=== PATIENT | male | born 1935 | race Caucasian/White ===

== ENCOUNTER 2016-12-04 14:39 | Emergency (ER) | payer MEDICARE, OTHER ==
[2016-12-04 14:02] LABS: BASOPHILS 0.4 %; BASOPHILS ABSOLUTE 0.03 10/3/uL (0.0-0.16); EOSINOPHILS 0.7 %; EOSINOPHILS ABSOLUTE 0.05 10/3/uL (0.0-0.53); ER CBC TAT 0 Hrs 08 Mins; HEMATOCRIT 49.4 % (40.0-51.0); IMMATURE GRANULOCYTES 0.3 %; IMMATURE GRANULOCYTES ABSOLUTE 0.02 10/3/uL (0.0-0.11); LYMPHOCYTES 13.2 %; LYMPHOCYTES ABSOLUTE 0.94 10/3/uL (0.67-4.30); MEAN CORPUS HGB CONC 34.4 g/dL (32.0-36.0); MEAN CORPUSCULAR HEMOGLOB 31.8 pg (26.0-34.0); MEAN CORPUSCULAR VOLUME 92.5 fL (80-100); MEAN PLATELET VOLUME 11.8 fL (9.2-13.0); MONOCYTES 10.2 %; MONOCYTES ABSOLUTE 0.73 10/3/uL (0.21-1.20); NEUTROPHILS 75.2 %; NEUTROPHILS ABSOLUTE 5.36 10/3/uL (2.02-8.40); PLATELET COUNT 207 10/3/uL (150-400); RBC DISTRIBUTION WIDTH 13.2 % (12.0-16.0); RED CELL COUNT 5.34 10/6/uL (4.7-6.1); WHITE BLOOD CELLS 7.1 10/3/uL (4.5-10.5)
[2016-12-04 14:04] LABS: MANUAL DIFF NO %
[2016-12-04 14:21] LABS: LACTATE 0.8 MMOL/L (0.3-2.4)
[2016-12-04 14:22] LABS: INFLUENZA A SCREEN NEGATIVE (NEGATIVE); INFLUENZA B SCREEN NEGATIVE (NEGATIVE)
[2016-12-04 14:23] LABS: A/G RATIO 0.7 (0.7-1.9); ALBUMIN 3.5 G/DL (3.5-5.0); ALKALINE PHOSPHATASE 115 U/L (45-117); CALCIUM, SERUM 9.4 MG/DL (8.5-10.4); CHLORIDE, SERUM 101 MMOL/L (96-112); CO2 (CARBON DIOXIDE) 28 MMOL/L (24-34); CREATININE 1.51 MG/DL (0.70-1.30); GFR AFRICAN AMERICAN 50 ML/MIN (>=60); GFR NON AFRICAN AMERICAN 43 ML/MIN (>=60); GLUCOSE, SERUM 69 MG/DL (60-99); POTASSIUM, SERUM 4.3 MMOL/L (3.5-5.3); SGOT(AST) 22 U/L (5-40); SGPT(ALT) 27 U/L (5-65); SODIUM, SERUM 138 MMOL/L (135-148); TOTAL BILIRUBIN 0.5 MG/DL (0-1.2); TROPONIN I <0.02 NG/ML (<0.05)
[2016-12-04 14:26] LABS: BUN (BLOOD UREA NITROGEN) 17 MG/DL (6-23); GLOBULIN 4.8 G/DL (2.5-4.1); TOTAL PROTEIN 8.3 G/DL (6.0-8.5)
[2017-03-19] MEDS ORDERED: FLOMAX4 PO (16:11)
[2017-03-19] MEDS ORDERED: COUMADIN6 MG PO (16:12)
[2017-03-19] MEDS ORDERED: ZOL50 PO (16:13)
[2017-03-19] MEDS ORDERED: PROSCAR5 PO (16:14)
[2017-03-19] MEDS ORDERED: AMB5 PO (16:23)
[2017-06-15] MEDS ORDERED: LOP50 PO (08:35)
[2017-06-19] MEDS ORDERED: DSS PO (13:45)
[2017-06-19] MEDS ORDERED: DITROXL5 PO (13:46)
[2017-06-19] MEDS ORDERED: PCET PO (13:48)
[2017-06-19] MEDS ORDERED: PYR200 PO (13:48)
[2017-06-19] MEDS ORDERED: FESO4 PO (13:48)
== END 2016-12-04 16:45 | disposition home or self-care (01) ==
LOC: ER 14:39
PROVIDERS: Nurse Practitioner
DX: J06.9 Acute upper respiratory infection, unspecified (principal); R91.1 Solitary pulmonary nodule; E86.9 Volume depletion, unspecified; F17.200 Nicotine dependence, unspecified, uncomplicated
CPT/HCPCS: 71020; 71250; 80053; 83605; 84484; 85025; 87040; 87804; 93005; 96360; 96361; 99284; A9270-GY

== ENCOUNTER 2017-01-11 10:29 | Emergency (ER) | payer MEDICARE, OTHER ==
[2017-01-11 10:18] LABS: BASOPHILS 0.6 %; BASOPHILS ABSOLUTE 0.04 10/3/uL (0.0-0.16); EOSINOPHILS 1.2 %; EOSINOPHILS ABSOLUTE 0.08 10/3/uL (0.0-0.53); ER CBC TAT 0 Hrs 03 Mins; HEMATOCRIT 46.3 % (40.0-51.0); HEMOGLOBIN 15.7 g/dL (13.6-17.8); IMMATURE GRANULOCYTES 0.1 %; IMMATURE GRANULOCYTES ABSOLUTE 0.01 10/3/uL (0.0-0.11); LYMPHOCYTES 20.8 %; MANUAL DIFF NO %; MEAN CORPUS HGB CONC 33.9 g/dL (32.0-36.0); MEAN CORPUSCULAR HEMOGLOB 30.9 pg (26.0-34.0); MEAN CORPUSCULAR VOLUME 91.1 fL (80-100); MEAN PLATELET VOLUME 11.2 fL (9.2-13.0); MONOCYTES 7.6 %; MONOCYTES ABSOLUTE 0.51 10/3/uL (0.21-1.20); NEUTROPHILS 69.7 %; NEUTROPHILS ABSOLUTE 4.68 10/3/uL (2.02-8.40); PLATELET COUNT 185 10/3/uL (150-400); RBC DISTRIBUTION WIDTH 13.7 % (12.0-16.0); RED CELL COUNT 5.08 10/6/uL (4.7-6.1); WHITE BLOOD CELLS 6.7 10/3/uL (4.5-10.5)
[2017-01-11 10:21] LABS: ASCORBIC ACID (UR NOT ORDER) NEG (NEG); BILIRUBIN, URINE NEGATIVE (NEG); KETONE, URINE NEGATIVE (NEG); LEUKOCYTE ESTERASE(NOT OR NEG (NEG); NITRITE (URINE) NEG (NEG); WBC (NOT ORDERED) (RFLEX) < 1 (0-5)
[2017-01-11 10:29] LABS: BUN (BLOOD UREA NITROGEN) 15 MG/DL (6-23); CALCIUM, SERUM 9.4 MG/DL (8.5-10.4); CHLORIDE, SERUM 109 MMOL/L (96-112); CO2 (CARBON DIOXIDE) 25 MMOL/L (24-34); GFR AFRICAN AMERICAN 51 ML/MIN (>=60); GFR NON AFRICAN AMERICAN 44 ML/MIN (>=60); GLUCOSE, SERUM 88 MG/DL (60-99); SODIUM, SERUM 141 MMOL/L (135-148)
[2017-03-19] MEDS ORDERED: FLOMAX4 PO (16:11)
[2017-03-19] MEDS ORDERED: COUMADIN6 MG PO (16:12)
[2017-03-19] MEDS ORDERED: ZOL50 PO (16:13)
[2017-03-19] MEDS ORDERED: PROSCAR5 PO (16:14)
[2017-03-19] MEDS ORDERED: AMB5 PO (16:23)
[2017-06-15] MEDS ORDERED: LOP50 PO (08:35)
[2017-06-19] MEDS ORDERED: DSS PO (13:45)
[2017-06-19] MEDS ORDERED: DITROXL5 PO (13:46)
[2017-06-19] MEDS ORDERED: PCET PO (13:48)
[2017-06-19] MEDS ORDERED: FESO4 PO (13:48)
[2017-06-19] MEDS ORDERED: PYR200 PO (13:48)
== END 2017-01-11 11:15 | disposition home or self-care (01) ==
LOC: ER 10:29
PROVIDERS: Emergency Medicine
PROC: 0T9B70Z Drainage of Bladder with Drainage Device, Via Natural or Artificial Opening (ICD-10-PCS; principal; 2017-01-11)
DX: R33.9 Retention of urine, unspecified (principal); I12.0 Hypertensive chronic kidney disease with stage 5 chronic kidney disease or end stage renal disease; N18.9 Chronic kidney disease, unspecified
CPT/HCPCS: 80048; 81001; 85025; 99283

== ENCOUNTER 2017-02-17 11:21 | Emergency (ER) | payer MEDICARE, OTHER ==
[2017-02-17 12:25] LABS: BASOPHILS 0.4 %; BASOPHILS ABSOLUTE 0.04 10/3/uL (0.0-0.16); EOSINOPHILS 0.6 %; EOSINOPHILS ABSOLUTE 0.06 10/3/uL (0.0-0.53); ER CBC TAT 0 Hrs 05 Mins; HEMATOCRIT 49.3 % (40.0-51.0); HEMOGLOBIN 17.2 g/dL (13.6-17.8); IMMATURE GRANULOCYTES 0.3 %; IMMATURE GRANULOCYTES ABSOLUTE 0.03 10/3/uL (0.0-0.11); LYMPHOCYTES 13.2 %; LYMPHOCYTES ABSOLUTE 1.29 10/3/uL (0.67-4.30); MEAN CORPUS HGB CONC 34.9 g/dL (32.0-36.0); MEAN CORPUSCULAR VOLUME 91.8 fL (80-100); MEAN PLATELET VOLUME 11.8 fL (9.2-13.0); MONOCYTES ABSOLUTE 0.68 10/3/uL (0.21-1.20); NEUTROPHILS 78.5 %; NEUTROPHILS ABSOLUTE 7.66 10/3/uL (2.02-8.40); PLATELET COUNT 203 10/3/uL (150-400); RBC DISTRIBUTION WIDTH 13.6 % (12.0-16.0); RED CELL COUNT 5.37 10/6/uL (4.7-6.1); WHITE BLOOD CELLS 9.8 10/3/uL (4.5-10.5)
[2017-02-17 12:26] LABS: MANUAL DIFF NO %
[2017-02-17 12:29] LABS: ASCORBIC ACID (UR NOT ORDER) NEG (NEG); BILIRUBIN, URINE NEGATIVE (NEG); ER URINALYSIS TAT 0 Hrs 25 Mins; KETONE, URINE NEGATIVE (NEG); LEUKOCYTE ESTERASE(NOT OR LARGE (NEG); NITRITE (URINE) POS (NEG); WBC (NOT ORDERED) (RFLEX) 18 (0-5)
[2017-02-17 12:42] LABS: CALCIUM, SERUM 10.2 MG/DL (8.5-10.4); CHLORIDE, SERUM 104 MMOL/L (96-112); CREATININE 1.51 MG/DL (0.70-1.30); GFR AFRICAN AMERICAN 50 ML/MIN (>=60); GFR NON AFRICAN AMERICAN 43 ML/MIN (>=60); GLUCOSE, SERUM 86 MG/DL (60-99); POTASSIUM, SERUM 4.6 MMOL/L (3.5-5.3); SGOT(AST) 16 U/L (5-40); SGPT(ALT) 20 U/L (5-65); SODIUM, SERUM 137 MMOL/L (135-148); TOTAL BILIRUBIN 0.5 MG/DL (0-1.2); TOTAL PROTEIN 7.8 G/DL (6.0-8.5)
[2017-02-17 12:43] LABS: A/G RATIO 1.1 (0.7-1.9); ALKALINE PHOSPHATASE 137 U/L (45-117); BUN (BLOOD UREA NITROGEN) 19 MG/DL (6-23); CO2 (CARBON DIOXIDE) 30 MMOL/L (24-34); GLOBULIN 3.8 G/DL (2.5-4.1)
[2017-02-17 13:47] LABS: INTERNATIONAL NORMAL RATI 1.7 UNITS (-)
[2017-02-17 13:49] LABS: PROTIME (NOT ORD) 20.1 SEC (12.0-14.5)
[2017-03-19] MEDS ORDERED: FLOMAX4 PO (16:11)
[2017-03-19] MEDS ORDERED: COUMADIN6 MG PO (16:12)
[2017-03-19] MEDS ORDERED: ZOL50 PO (16:13)
[2017-03-19] MEDS ORDERED: PROSCAR5 PO (16:14)
[2017-03-19] MEDS ORDERED: AMB5 PO (16:23)
[2017-06-15] MEDS ORDERED: LOP50 PO (08:35)
[2017-06-19] MEDS ORDERED: DSS PO (13:45)
[2017-06-19] MEDS ORDERED: DITROXL5 PO (13:46)
[2017-06-19] MEDS ORDERED: PCET PO (13:48)
[2017-06-19] MEDS ORDERED: FESO4 PO (13:48)
[2017-06-19] MEDS ORDERED: PYR200 PO (13:48)
== END 2017-02-17 14:43 | disposition home or self-care (01) ==
LOC: ER 11:21
PROVIDERS: Emergency Medicine
DX: N39.0 Urinary tract infection, site not specified (principal); F32.9 Major depressive disorder, single episode, unspecified
CPT/HCPCS: 80053; 81001; 85025; 85610; 87077; 87086; 87186; 96374; 99284

== ENCOUNTER 2017-03-11 12:41 | Emergency (ER) | payer MEDICARE, OTHER ==
[2017-03-11 13:53] LABS: ASCORBIC ACID (UR NOT ORDER) NEG (NEG); BILIRUBIN, URINE NEGATIVE (NEG); ER URINALYSIS TAT 0 Hrs 08 Mins; KETONE, URINE NEGATIVE (NEG); LEUKOCYTE ESTERASE(NOT OR NEG (NEG); WBC (NOT ORDERED) (RFLEX) 1 (0-5)
[2017-03-11 13:54] LABS: NITRITE (URINE) NEG (NEG)
[2017-03-19] MEDS ORDERED: FLOMAX4 PO (16:11)
[2017-03-19] MEDS ORDERED: COUMADIN6 MG PO (16:12)
[2017-03-19] MEDS ORDERED: ZOL50 PO (16:13)
[2017-03-19] MEDS ORDERED: PROSCAR5 PO (16:14)
[2017-03-19] MEDS ORDERED: AMB5 PO (16:23)
[2017-06-15] MEDS ORDERED: LOP50 PO (08:35)
[2017-06-19] MEDS ORDERED: DSS PO (13:45)
[2017-06-19] MEDS ORDERED: DITROXL5 PO (13:46)
[2017-06-19] MEDS ORDERED: FESO4 PO (13:48)
[2017-06-19] MEDS ORDERED: PCET PO (13:48)
[2017-06-19] MEDS ORDERED: PYR200 PO (13:48)
== END 2017-03-11 14:47 | disposition home or self-care (01) ==
LOC: ER 12:41
PROVIDERS: Nurse Practitioner Acute Care
PROC: 0T2BX0Z Change Drainage Device in Bladder, External Approach (ICD-10-PCS; principal; 2017-03-11)
DX: R33.9 Retention of urine, unspecified (principal); F17.200 Nicotine dependence, unspecified, uncomplicated; Z86.718 Personal history of other venous thrombosis and embolism
CPT/HCPCS: 81001; 93005; 99284